=== PATIENT | female | born 1945 | race Caucasian/White ===

== ENCOUNTER 2022-04-28 14:32 | Emergency (ER) | payer BC ==
[~2022-04-28] VITALS: Ht 160 cm; Wt 59.0 kg
--- NOTE | 2022-04-28 14:50 | NUR ---
DR. GÓMEZ AT BEDSIDE
--- NOTE | 2022-04-28 14:55 | NUR ---
EKG AT BEDSIDE
--- NOTE | 2022-04-28 15:12 | NUR ---
CALLED [facility]. THEY ADVISED FOR PT TO STAY 24 HOURS, WELLBUTRIN CONSUMED WAS A SLOW RELEASE. NOTIFIED DR. GÓMEZ.
[2022-04-28] MEDS ORDERED: NEBI10TA2 PO (15:19)
[2022-04-28] MEDS ORDERED: LEVO88TA5 PO (15:19)
[2022-04-28] MEDS ORDERED: ZOLP10TA2 PO (15:19)
[2022-04-28] MEDS ORDERED: BUPR-54 PO (15:19)
[2022-04-28] MEDS ORDERED: PRAV40TA3 PO (15:19)
--- NOTE | 2022-04-28 15:23 | NUR ---
PATIENT REFUSING BLOOD DRAW AND ANY OTHER KINDS OF "STICKS"
[2022-04-28 15:50] LABS: BILIRUBIN,URINE NEGATIVE (NEGATIVE); COLOR,URINE YELLOW (YELLOW); LEUKOCYTE ESTERASE ,URINE NEGATIVE (NEGATIVE); NITRITE, URINE NEGATIVE (NEGATIVE); PROTEIN,URINE NEGATIVE (NEGATIVE); UGLUCOSE NEGATIVE (NEGATIVE); UROBILINOGEN,URINE 0.2 EU/dL (0.2)
--- NOTE | 2022-04-28 16:18 | NUR ---
COVID SWAB TAKEN AND SENT TO LAB
[2022-04-28 16:51] VITALS: BP 145/78
[2022-04-28 17:12] LABS: BACTERIA,URINE None seen /HPF (None Seen); WBC,URINE 0-2 /HPF (0-3)
== END 2022-04-28 16:52 | disposition home or self-care (01) ==
LOC: ER 14:35
DX: T43.291A Poisoning by other antidepressants, accidental (unintentional), initial encounter (principal); R68.2 Dry mouth, unspecified; Y92.019 Unspecified place in single-family (private) house as the place of occurrence of the external cause; I10 Essential (primary) hypertension; M06.9 Rheumatoid arthritis, unspecified; F32.A Depression, unspecified; Z53.29 Procedure and treatment not carried out because of patient's decision for other reasons; Z20.822 Contact with and (suspected) exposure to COVID-19
CPT/HCPCS: 99284; 87426; 93005; 80307; 81001; C9803